=== PATIENT | male | born 1990 | race African-American/Black ===

== ENCOUNTER 2023-11-08 21:35 | Emergency (ER) | payer OTHER ==
[2023-11-08 21:48] VITALS: BP 132/72; PULSE 81; RESP 20; TEMP 98.7; BMI 32.5
[2023-11-09] MEDS ORDERED: CEPHALEXIN MONOHYDRATE 500 MG CAPSULE (UD) ONE (01:24)
[2023-11-09] MEDS ORDERED: IBUPROFEN 600 MG TABLET (FP) PO ONE (01:24)
[2023-11-09] MEDS: CEPHALEXIN MONOHYDRATE 500 MG CAPSULE (UD) PO ONE (01:26)
[2023-11-09] MEDS: IBUPROFEN 600 MG TABLET (FP) PO ONE (01:26)
== END 2023-11-09 01:28 | disposition home or self-care (01) ==
LOC: JERFT 21:35
DX: L03.012 Cellulitis of left finger (principal); R22.32 Localized swelling, mass and lump, left upper limb
CPT/HCPCS: 99283-25

== ENCOUNTER 2024-10-04 19:23 | Emergency (ER) | payer OTHER ==
[2024-10-04 19:31] VITALS: BP 126/83; PULSE 90; RESP 20; TEMP 98.1; BMI 27.3
[2024-10-04] MEDS ORDERED: IBUPROFEN 600 MG TABLET (FP) PO ONE (20:48)
[2024-10-04] MEDS: IBUPROFEN 600 MG TABLET (FP) PO ONE (20:53)
== END 2024-10-04 21:14 | disposition home or self-care (01) ==
LOC: JER 19:23
DX: J11.1 Influenza due to unidentified influenza virus with other respiratory manifestations (principal); R06.02 Shortness of breath; R42 Dizziness and giddiness; R05.9 Cough, unspecified; R50.9 Fever, unspecified
CPT/HCPCS: 71046-TC-FY; 99283-25